=== PATIENT | male | born 1965 | race Caucasian/White ===

== ENCOUNTER 2024-06-12 08:17 | Outpatient (CLI) | payer OTHER | END 2024-06-12 08:18 | disposition home or self-care (01) | LOC: CSHSLEEP 08:17 | PROVIDERS: ATTEND Family Medicine | DX: G47.33 Obstructive sleep apnea (adult) (pediatric) (principal); G47.10 Hypersomnia, unspecified; G47.9 Sleep disorder, unspecified; R53.83 Other fatigue; R09.89 Other specified symptoms and signs involving the circulatory and respiratory systems; R51.9 Headache, unspecified; F32.A Depression, unspecified; F41.9 Anxiety disorder, unspecified; E66.9 Obesity, unspecified; Z68.42 Body mass index [BMI] 45.0-49.9, adult; R06.83 Snoring; G47.00 Insomnia, unspecified | CPT/HCPCS: 95800 ==